=== PATIENT | male | born 1950 | race Caucasian/White ===

== ENCOUNTER 2019-08-18 05:26 | Emergency (ER) | payer MEDICARE, OTHER, SELFPAY ==
[2019-08-18 05:35] VITALS: BP 144/87; PULSE 82; RESP 18; TEMP 36.5; O2SAT 97; BMI 25.1
--- NOTE | 2019-08-18 05:41 | ED_ITS ---
Entered by Portia Li, acting as scribe for Malvin Davidson MD HPI - Neck Pain/Injury General: Chief Complaint: Neck Pain/Injury Stated Complaint: neck pain Time Seen by Provider: 08/18/19 05:41 Source: patient Mode of arrival: ambulatory History of Present Illness: HPI Narrative: 69 y/o male presents to the ED with complaint of neck pain. Pt states he was working on a fence yesterday and spent alot of time leaning over and lifting heavy weight. He states he was unable to sleep very well. He has muscle spasms on the left side of his neck and pain radiating into his left ear. He has decreased ROM. complaint: neck pain Place: home Severity: mild Quality: sharp Duration: progressively worsening Exacerbating factors: movement of neck Context: lifting (working fence) Associated symptoms: Denies headache(s) or nausea Treatments prior to arrival: ibuprofen Review of Systems Const: Denies: fever, chills, body aches or change in appetite Eyes: Denies: blurry vision or eye discomfort ENMT: Denies: throat pain or dental pain Card: Denies: chest pain Resp: Denies: shortness of breath GI: Denies: abdominal pain, nausea, vomiting or diarrhea : Denies: painful urination Musc: Reports: neck pain, limited range of motion and muscle cramps; Denies: back pain Skin/Breast: Denies: rash Neuro: Denies: headache Psych: Denies: depression [place]/Lymph: Denies: easy bruising All/Imm: Denies: hives PFSH ED PFSH: Social History Smoking and tobacco status: never smoked Physical Exam Const: COMMON NORMALS: no apparent distress and oriented x3 HENMT: COMMON NORMALS: normocephalic and head/scalp atraumatic HEAD & SCALP: normocephalic and atraumatic Eye: COMMON NORMALS: PERRL and EOMs intact bilaterally PUPIL: Yes PERRL Neck/C-Spine: OTHER: decreased ROM Chest: COMMONS NORMALS: inspection of chest normal and palpation of chest normal Resp: COMMON NORMALS: normal respiratory effort, no retractions, no use of accessory muscles and clear to auscultation bilaterally AUSCULTATION: clear to auscultation bilaterally Cardio: COMMON NORMALS: regular rate, regular rhythm and no murmurs RATE: regular rate RHYTHM: regular rhythm GI: COMMON NORMALS: normal to inspection, nondistended, normoactive bowel sounds, soft to palpation, non-tender and no masses PALPATION: Yes soft Extremity: COMMON NORMALS: normal to inspection and full ROM Neuro: COMMON NORMALS: oriented x3, moves all extremities and no focal motor deficits Psych: COMMON NORMALS: mental status grossly normal, thought process normal and cooperative THOUGHT PROCESS: normal thought process Skin: COMMON NORMALS: no rashes or lesions noted and no wounds GENERAL SKIN EXAM: no rashes or lesions noted Course Vital Signs: Vital signs: Vital Signs Temperature 97.7 F 08/18/19 05:35 Pulse Rate 82 08/18/19 05:35 Respiratory Rate 18 08/18/19 05:35 Blood Pressure 144/87 08/18/19 05:35 Pulse Oximetry 97 08/18/19 05:35 MDM - Neck Pain/Injury MDM Narrative: Medical decision making narrative: Patient presents here with a neck strain likely from working on the fence. He is point tender and has muscle spasms of his neck. Patient has no signs of major injuries. I do not believe he warrants any imaging at this time. He is to follow-up with his primary care doctor in 3 to 5 days return if worsening. Discharge Plan Discharge Patient Disposition: Home, Self-Care Clinical Impression: Strain of neck muscle Condition: Stable Prescriptions: New Robaxin-750 750 mg tablet 750 mg PO Q6H Qty: 30 RF: 0 EC-Naprosyn 500 mg tablet,delayed release (DR/EC) 500 mg PO BID PRN (Reason: pain) Qty: 20 RF: 0 No Action atenolol 25 mg Tablet 25 mg PO DAILY RF: 0 Eliquis 5 mg Tablet 5 mg PO BID RF: 0 Discharge Orders: Discharge Order (Routine); Ordered 08/18/19 Ordered By: Malvin Davidson Discharge Diet: Advance as tolerated Discharge Activity: Resume usual activity Patient Instructions: Cervical Spine Strain (ED), Spasmodic Torticollis (ED) Discharge Date/Time: 08/18/19 05:51 Coding Level of Care Code ED Warp Drawer for Chg Fwd Exam Comprehensive The documentation recorded by the Guillermo valle Ashley, accurately reflects the service I personally performed and the decisions made by Stuart frias Korby, MD Aug 18, 2019 05:26
[2019-08-18] MEDS: naproxen 500 mg Tablet PO (05:50)
== END 2019-08-18 05:51 | disposition home or self-care (01) ==
LOC: ER 05:59
PROVIDERS: Emergency Provider Emergency Medicine
DX: S16.1XXA Strain of muscle, fascia and tendon at neck level, initial encounter (principal); X50.9XXA Other and unspecified overexertion or strenuous movements or postures, initial encounter
CPT/HCPCS: 99281; 99283

== ENCOUNTER 2020-08-13 21:56 | Emergency (ER) | payer MEDICARE, OTHER, SELFPAY ==
[2020-08-13] VITALS (7 sets, daily range): BP systolic 93–118; BP diastolic 61–71; PULSE 97–131; RESP 16–21; TEMP 36.5; O2SAT 92–99; BMI 23.7
--- NOTE | 2020-08-13 22:39 | XRR_ITS ---
PROCEDURE INFORMATION: Exam: XR Chest Exam date and time: 08/13/2020 10:41 PM Age: 70 years old Clinical indication: Other: Palpitations TECHNIQUE: Imaging protocol: XR of the chest Views: 1 view. COMPARISON: No relevant prior studies available. FINDINGS: Lungs: Unremarkable. No consolidation. Pleural spaces: Unremarkable. No pleural effusion. No pneumothorax. Heart/Mediastinum: Unremarkable. No cardiomegaly. Bones/joints: Unremarkable. XR/XR chest 1V portable [id number] IMPRESSION: No acute findings.
--- NOTE | 2020-08-13 22:39 | ECG_ITS ---
[facility] Test Date: 2020-08-13 Pat Name: Ab Cheney Department: Room: Gender: Male Educational Interpreter: : 1950 Requested By: Kyree Love Order Number: [id number] Sean MD: Boaz Silverman M.D. Measurements Intervals [place] Rate: 133 P: TN: QRS: 69 QRSD: 104 T: 76 QT: 295 QTc: 439 Interpretive Statements ATRIAL FIBRILLATION WITH RAPID VENTRICULAR RESPONSE No previous ECG available for comparison Electronically Signed On 08-14-2020 17:02:32 ENVIRONMENTAL PROGRAMS MANAGER by Boaz Silverman M.D. [id number]
[2020-08-13 22:50] LABS: Basophils # 0.1 10^3/uL (0.0-0.1); Basophils % 0.8 %; Eosinophils # 0.1 10^3/uL (0.0-0.8); Eosinophils % 1.1 %; Hematocrit 44.7 % (42.0-52.0); Hemoglobin 14.2 g/dL (11.7-16.6); Lymphocytes % 27.6 %; Mean Corpuscular HGB Conc 31.8 g/dL (30.0-36.0); Mean Corpuscular Hemoglobin 30.5 pg (28.0-34.0); Mean Corpuscular Volume 95.9 fL (80-94); Mean Platelet Volume 9.8 fL (7.4-10.4); Monocytes # 0.6 10^3/uL (0.2-0.9); Monocytes % 7.8 %; Neutrophils # 4.48 10^3/uL (1.8-7.7); Neutrophils % 62.4 %; Nucleated Red Blood Cells % 0 %; Platelet Count 170 10^3/cmm (130-400); Red Blood Count 4.66 10^6/uL (4.1-5.3); Red Cell Distribution Width 13.4 % (12.1-15.1); White Blood Count 7.2 10^3/uL (4.0-10.0)
[2020-08-13] MEDS: sodium chloride 0.9% 500 ML IV (22:56)
[2020-08-13 23:00] LABS: INR 1.13 (0.8-1.2)
[2020-08-13 23:01] LABS: Partial Thromboplastin Time 37.1 SECONDS (23.9-36.7)
--- NOTE | 2020-08-13 23:18 | PC.NURSE ---
Report recieved from Alfred RN - pt A&Ox3, Afib rate 100-110, other VSS. No complaints at this time, pain 0/10.
[2020-08-13 23:20] LABS: Troponin(5th) Baseline 14 ng/L (0-15)
[2020-08-13 23:29] LABS: Alanine Aminotransferase 23 U/L (0-41); Albumin Level 4.4 g/dL (3.5-5.2); Alkaline Phosphatase 50 IU/L (40-130); Anion Gap 15.5 (5-19); Aspartate Amino Transferase 29 U/L (0-40); Blood Urea Nitrogen 17 mg/dL (8-23); Calcium 9.5 mg/dL (8.5-10.5); Carbon Dioxide 26 mmol/L (22-29); Chloride 102 mmol/L (98-107); Creatine Phosphokinase 274 U/L (39-308); Globulin 2.7 g/dL (1.3-4.6); Glucose 98 mg/dL (65-115); NT Pro B Type Natriuretic Pept 353 pg/mL (0-125); Osmolality Calculated 290 mOsm/kg (285-295); Potassium 4.5 mmol/L (3.5-5.1); Sodium 139 mmol/L (136-145); Total Bilirubin 0.5 mg/dL (0.15-1.2); Total Protein 7.1 g/dL (6.6-8.7)
[2020-08-13] MEDS: metoprolol tartrate 1 mg/1 mL SDV 5 mL 5 MG IV (23:53)
[2020-08-14] VITALS (7 sets, daily range): BP systolic 92–132; BP diastolic 61–74; PULSE 67–112; RESP 16–19; O2SAT 96–98
[2020-08-14 00:09] LABS: Add Urine Microscopic? YES; Bilirubin Urine Neg (Negative); Blood Urine 2+ (Negative); Glucose Urine UA Norm (Normal); Ketones Urine 1+ (Negative); Leukocyte Esterase Urine Negative (Negative); Nitrate Urine Negative (Negative); Protein Urine Neg (Negative); Urine Appearance Clear (CLEAR); Urine Color Yellow (Yellow); Urobilinogen Urine Norm (Negative); pH Urine 6 (5-7)
[2020-08-14 00:10] LABS: Add Urine Culture? No; Bacteria Urine TRACE /hpf; RBC Urine 0-4 /hpf (0-2); Squamous Epithelial Cell Urine 0-4 /hpf (0-5); WBC Urine 0-4 /hpf (0-5)
--- NOTE | 2020-08-14 00:39 | ECG_ITS ---
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 Measurements Intervals [place] Rate: 73 P: NM: QRS: 3 QRSD: 120 T: -10 QT: 388 QTc: 428 Interpretive Statements ATRIAL FIBRILLATION WITH ABERRANT CONDUCTION OR VENTRICULAR PREMATURE COMPLEXES MODERATE INTRAVENTRICULAR CONDUCTION DELAY [110+ ms QRS DURATION] ABNORMAL RHYTHM ECG Compared to ECG 08/13/2020 22:03:04 Ventricular premature complex(es) now present Aberrant conduction of supraventricular beat(s) now present Intraventricular conduction delay now present Electronically Signed On 08-15-2020 19:03:07 MANAGER ERP by Boaz Silverman M.D. [id number]
[2020-08-14 02:22] LABS: Troponin 5 2HR 13.13 ng/L (0-15)
[2020-08-14 02:35] LABS: Troponin 5 2HR Delta -0.87 ABS# (0-10)
--- NOTE | 2020-08-14 03:20 | ED_ITS ---
HPI - Arrhythmia/Palpitations General: Chief Complaint: Arrhythmia/Palpitations Stated Complaint: IRREGULAR HEART BEAT Time Seen by Provider: 08/13/20 22:38 History of Present Illness: HPI narrative: 70-year-old male with a history of atrial fibrillation. He noticed palpitations earlier this evening after a hard day working outside using a chain saw on moving brush. He never really had significant chest pain. He has atenolol, which he used to take for his rate control, and took 75 mg of it today in an attempt to control his heart rate. He also took his Eliquis which he had stopped a few months back. When his symptoms did not improve, he came in for evaluation. Denies any recent illness including fever, cough, shortness of breath, etc. MD complaint: rapid heart beat and heart racing Onset (ago): hour(s) Duration: constant Severity: moderate Context: occurred during exertion Arrhythmia history: atrial fibrillation Associated symptoms: Deny cough, diaphoresis, nausea, paresthesias, pre-syncope, short of breath or vomiting Treatments prior to arrival: beta-carl Review of Systems Const: Denies: fever(s) or diaphoresis Card: Reports: palpitations; Denies: chest pain, edema, swelling of feet/ankles or pre-syncope Resp: Denies: dyspnea, productive cough, non-productive cough or wheezing GI: Denies: nausea or vomiting : Denies: flank pain or difficulty urinating Neuro: Denies: headache(s) or confusion [facility] ED PFSH: Social History Smoking and tobacco status: never smoked Physical Exam Const: GENERAL APPEARANCE: well developed ORIENTATION/CONSCIOUSNESS: Yes oriented to person, Yes oriented to place and Yes oriented to time HENMT: COMMON NORMALS: normocephalic, external ears normal and Normal external nose present HEAD & SCALP: normocephalic FACE & SINUS: normal facial exam NOSE: Normal external nose present and No nasal discharge present EXTERNAL EAR: Yes external ears normal Eye: COMMON NORMALS: Equal, round and reactive pupils present, EOMs intact bilaterally and conjunctivae normal EYELID: eyelids normal CONJUNCTIVA: Yes conjunctivae normal PUPIL: Yes Equal, round and reactive pupils present Neck/C-Spine: GENERAL: No tracheal deviation Chest: COMMONS NORMALS: normal inspection of the chest CHEST: No tenderness Resp: COMMON NORMALS: clear to auscultation bilaterally EFFORT & INSPECTION: No tachypneic, No respiratory distress, No retractions, No uses accessory muscles and No tracheal deviation AUSCULTATION: clear to auscultation bilaterally, no rhonchi, no wheezes and lung sounds not diminished Cardio: RATE: tachycardic RHYTHM: abnormal rhythm irregularly irregular HEART SOUNDS: no murmurs PERIPHERAL PULSES: radial pulses present GI: INSPECTION: No abdominal distension AUSCULTATION: No Hyperactive bowel sounds present and No Hypoactive bowel sounds present PALPATION: No Guarding due to palpation present (GI) and No Rigid due to palpation PERCUSSION: no dullness to percussion and no tympanic to percussion Neuro: SENSORIUM/ORIENTATION: Yes oriented to person, Yes oriented to place and Yes oriented to time Psych: COMMON NORMALS: mental status grossly normal Skin: COMMON NORMALS: no rashes or lesions noted GENERAL SKIN EXAM: no rashes or lesions noted Course Vital Signs: Vital signs: Vital Signs Temperature 97.7 F 08/13/20 22:05 Pulse Rate 69 08/14/20 03:13 Respiratory Rate 16 08/14/20 03:13 Blood Pressure 96/61 08/14/20 03:13 Pulse Oximetry 98 08/14/20 03:13 MDM - Arrhythmia/Palpitations MDM Narrative: Medical decision making narrative: 70-year-old gentleman with a history of atrial fibrillation. He had been in sinus long enough that he was taken off of his atenolol and his Eliquis. He presents in rapid A. fib. His pressure was mildly soft. He was given metoprolol slowly without improvement in his heart rate, but with lowering of his blood pressure. He was given 500 mL of fluid with improvement in his blood pressure before diltiazem was given which significantly reduced his heart rate down into the 70s. He was still in A. fib though. He was placed briefly on a drip of 5, which kept his heart rate at 60- 75, still in atrial fibrillation. Discussed options with the patient. Since his troponin did not elevate, he did not have significant ST changes on his EKG, and his other labs are normal, he was given the option to go home on diltiazem. He accepts this option. He will stay on his Eliquis. He will call his heart doctor on Saturday. He was offered observation admission, but declined. Lab Data: Labs: Lab Results 08/13/20 08/13/20 08/13/20 Range/Units 22:43 22:43 22:43 WBC 7.2 (4.0-10.0) 10^3/ uL RBC 4.66 (4.1-5.3) 10^6/u L Hgb 14.2 (11.7-16.6) g/dL Hct 44.7 (42.0-52.0) % MCV 95.9 H (80-94) fL MCH 30.5 (28.0-34.0) pg MCHC 31.8 (30.0-36.0) g/dL RDW 13.4 (12.1-15.1) % Plt Count 170 (130-400) 10^3/c mm MPV 9.8 (7.4-10.4) fL Neut % (Auto) 62.4 % Lymph % (Auto) 27.6 % [place] % (Auto) 7.8 % Eos % (Auto) 1.1 % Baso % (Auto) 0.8 % Neut # (Auto) 4.48 (1.8-7.7) 10^3/u L Lymph # (Auto) 2.0 (0.8-4.8) 10^3/u L [place] # (Auto) 0.6 (0.2-0.9) 10^3/u L Eos # (Auto) 0.1 (0.0-0.8) 10^3/u L Baso # (Auto) 0.1 (0.0-0.1) 10^3/u L Nucleated RBC % (a uto) 0 % Nucleated RBCs # 0.0 /100WBC PT 14.90 (12.1-14.9) SECO NDS INR 1.13 (0.8-1.2) APTT 37.1 H (23.9-36.7) SECO NDS Sodium 139 (136-145) mmol/L Potassium 4.5 (3.5-5.1) mmol/L Chloride 102 (98-107) mmol/L Carbon Dioxide 26 (22-29) mmol/L Anion Gap 15.5 (5-19) BUN 17 (8-23) mg/dL Creatinine 0.8 (0.7-1.2) mg/dL GFR Calculation Not Reportable Glucose 98 (65-115) mg/dL Calculated Osmolal ity 290 (285-295) mOsm/k g Calcium 9.5 (8.5-10.5) mg/dL Total Bilirubin 0.5 (0.15-1.2) mg/dL AST 29 (0-40) U/L ALT 23 (0-41) U/L Alkaline Phosphata se 50 (40-130) IU/L Creatine Kinase 274 (39-308) U/L Troponin T Baselin e (0-15) ng/L Troponin T 120 Min red [place] (0-15) ng/L Delta Troponin T (0-10) ABS# NT-Pro-B Natriuret Pep 353 H (0-125) pg/mL Total Protein 7.1 (6.6-8.7) g/dL Albumin 4.4 (3.5-5.2) g/dL Globulin 2.7 (1.3-4.6) g/dL Urine Color (Yellow) Urine Appearance (CLEAR) Urine pH (5-7) Ur Specific Gravit y (1.005-1.030) Urine Protein (Negative) Urine Glucose (UA) (Normal) Urine Ketones (Negative) Urine Blood (Negative) Urine Nitrate (Negative) Urine Bilirubin (Negative) Urine Urobilinogen (Negative) mg/dL Ur Leukocyte Lela ase (Negative) Urine RBC (0-2) /hpf Urine WBC (0-5) /hpf Ur Squamous Epith Cells (0-5) /hpf Amorphous Sediment Urine Bacteria (NONE) /hpf 08/13/20 08/13/20 08/14/20 Range/Units 22:43 23:44 01:18 WBC (4.0-10.0) 10^3/ uL RBC (4.1-5.3) 10^6/u L Hgb (11.7-16.6) g/dL Hct (42.0-52.0) % MCV (80-94) fL MCH (28.0-34.0) pg MCHC (30.0-36.0) g/dL RDW (12.1-15.1) % Plt Count (130-400) 10^3/c mm MPV (7.4-10.4) fL Neut % (Auto) % Lymph % (Auto) % [place] % (Auto) % Eos % (Auto) % Baso % (Auto) % Neut # (Auto) (1.8-7.7) 10^3/u L Lymph # (Auto) (0.8-4.8) 10^3/u L [place] # (Auto) (0.2-0.9) 10^3/u L Eos # (Auto) (0.0-0.8) 10^3/u L Baso # (Auto) (0.0-0.1) 10^3/u L Nucleated RBC % (a uto) % Nucleated RBCs # /100WBC PT (12.1-14.9) SECO NDS INR (0.8-1.2) APTT (23.9-36.7) SECO NDS Sodium (136-145) mmol/L Potassium (3.5-5.1) mmol/L Chloride (98-107) mmol/L Carbon Dioxide (22-29) mmol/L Anion Gap (5-19) BUN (8-23) mg/dL Creatinine (0.7-1.2) mg/dL GFR Calculation Glucose (65-115) mg/dL Calculated Osmolal ity (285-295) mOsm/k g Calcium (8.5-10.5) mg/dL Total Bilirubin (0.15-1.2) mg/dL AST (0-40) U/L ALT (0-41) U/L Alkaline Phosphata se (40-130) IU/L Creatine Kinase (39-308) U/L Troponin T Baselin e 14 (0-15) ng/L Troponin T 120 Min red devil 13.13 (0-15) ng/L Delta Troponin T -0.87 L (0-10) ABS# NT-Pro-B Natriuret Pep (0-125) pg/mL Total Protein (6.6-8.7) g/dL Albumin (3.5-5.2) g/dL Globulin (1.3-4.6) g/dL Urine Color Yellow (Yellow) Urine Appearance Clear (CLEAR) Urine pH 6 (5-7) Ur Specific Gravit y 1.010 (1.005-1.030) Urine Protein Neg (Negative) Urine Glucose (UA) Norm (Normal) Urine Ketones 1+ H (Negative) Urine Blood 2+ H (Negative) Urine Nitrate Negative (Negative) Urine Bilirubin Neg (Negative) Urine Urobilinogen Norm (Negative) mg/dL Ur Leukocyte Lela ase Negative (Negative) Urine RBC 0-4 H (0-2) /hpf Urine WBC 0-4 H (0-5) /hpf Ur Squamous Epith Cells 0-4 H (0-5) /hpf Amorphous Sediment Not Reportable Urine Bacteria Trace (NONE) /hpf Discharge Plan Discharge Patient Disposition: Home Clinical Impression: Atrial fibrillation Qualifiers: Atrial fibrillation type: paroxysmal Qualified Code(s): I48.0 - Paroxysmal atrial fibrillation Condition: Stable Prescriptions: New diltiazem HCl 180 mg capsule,extended release 24 hr 180 mg PO DAILY Qty: 30 RF: 0 No Action atenolol 25 mg Tablet 25 mg PO DAILY RF: 0 Eliquis 5 mg Tablet 5 mg PO BID RF: 0 Robaxin-750 750 mg tablet 750 mg PO Q6H Qty: 30 RF: 0 EC-Naprosyn 500 mg tablet,delayed release (DR/EC) 500 mg PO BID PRN (Reason: pain) Qty: 20 RF: 0 Discharge Orders: Discharge ED (Routine); Ordered 08/14/20 Ordered By: Kyree Davey Patient Instructions: Atrial Fibrillation (ED) Activity Restrictions/Additional Instructions: Return for rapid heart rate or palpitations, chest discomfort, shortness of breath, any other concerning symptoms. Check your heart rate at least twice daily and blood pressure at least twice daily. Report numbers to your physician. Call your physician on Saturday morning to let them know you were here, they may wish to perform further testing or make further medication changes. Medication as directed, hold for heart rates less than 50 or blood pressures less than 90 systolic (the top number). Coding Level of Care Code ED Sports Coordinator for Abbie Loera
[2020-08-14] MEDS: dilTIAZem ER (24HR) 180 mg Capsule PO (03:25)
== END 2020-08-14 03:27 | disposition home or self-care (01) ==
PROVIDERS: Emergency Provider Emergency Medicine
DX: I48.0 Paroxysmal atrial fibrillation (principal); Z79.01 Long term (current) use of anticoagulants
CPT/HCPCS: 71045; 80053; 81001; 81003; 82550; 83880; 84484; 85025; 85610; 85730; 93005; 96365; 96366; 96375; 96376; 99284; J3490; J7040